=== PATIENT | female | born 1985 | race African-American/Black ===

== ENCOUNTER 2018-01-18 18:44 | Emergency (ER) | payer SELFPAY ==
[2018-01-18] MEDS ORDERED: LORAZEPAM 1 MG TABLET PO ONE (19:32)
--- NOTE | 2018-01-18 19:37 | ER Document Report ---
ED Psych Disorder / Suicide - General Chief Complaint: Anxiety Stated Complaint: ANXIETY Time Seen by Provider: 01/18/18 19:10 Mode of Arrival: Ambulatory Information source: Patient Notes: Patient is a 32-year-old female who presents with a chief complaint of anxiety, patient states that she was in an argument with her roommate and another friend when she started having severe anxiety symptoms. Patient reports that she had one episode of anxiety similar to this a few years ago. Patient denies taking any medications for her anxiety. Patient reports a history of asthma as a child. Patient denies any suicidal or homicidal ideations. Patient does respond report smoking approximately 1 pack per day of cigarettes and drinks occasional alcohol and uses cocaine occasionally. Patient reports that she had 2 shots of alcohol today and did some cocaine about 2 hours prior to arrival. Patient states that she smokes daily, uses alcohol a few times a week and uses cocaine approximately once a month. Patient denies any nausea, vomiting, chest pain or any other physical complaints. TRAVEL OUTSIDE OF THE [place] IN LAST 30 DAYS: No - HPI Onset: This afternoon Onset was: Sudden Quality of pain: No pain Severity: Moderate Pain Level: Denies Similar symptoms previously: Yes - one episode 3 years ago Recently seen / treated by doctor: No - Related Data Allergies/Adverse Reactions: lettuce Allergy (Verified 01/18/18 18:56) shellfish derived Allergy (Verified 01/18/18 18:56) Past Medical History - General Information source: Patient - Social History Smoking Status: Current Every Day Smoker Chew tobacco use (# tins/day): No Frequency of alcohol use: Occasional Drug Abuse: Cocaine Lives with: Friend Family History: Reviewed & Not Pertinent - Denies any family history of psychiatric disorders Patient has suicidal ideation: No Patient has homicidal ideation: No - Past Medical History Cardiac Medical History: Reports: None Pulmonary Medical History: Reports: Hx Asthma EENT Medical History: Reports: None Neurological Medical History: Reports: None Endocrine Medical History: Reports: None Renal/ Medical History: Reports: None. Denies: Hx Peritoneal Dialysis Malignancy Medical History: Reports: None GI Medical History: Reports: None Musculoskeltal Medical History: Reports None Skin Medical History: Reports None Psychiatric Medical History: Reports: Hx Anxiety - Denies taking any medications for her anxiety Traumatic Medical History: Reports: None Infectious Medical History: Reports: None Surgical Hx: Negative Past Surgical History: Reports: None - Immunizations Immunizations up to date: Yes Review of Systems - Review of Systems Constitutional: See HPI. denies: Chills, Fever EENT: No symptoms reported Cardiovascular: No symptoms reported Respiratory: No symptoms reported Gastrointestinal: No symptoms reported. denies: Diarrhea, Nausea, Vomiting Genitourinary: No symptoms reported Female Genitourinary: No symptoms reported Musculoskeletal: No symptoms reported Skin: No symptoms reported Hematologic/Lymphatic: No symptoms reported Neurological/Psychological: Anxiety Physical Exam - Vital signs Vitals: Temp Pulse Resp BP Pulse Ox 99.8 F 135 H 22 H 133/97 H 100 01/18/18 18:53 01/18/18 18:53 01/18/18 18:53 01/18/18 18:53 01/18/18 18:53 Interpretation: Normal - General General appearance: Appears well, Alert - HEENT Head: Normocephalic, Atraumatic Eyes: Normal Pupils: PERRL - Respiratory Respiratory status: No respiratory distress Chest status: Nontender Breath sounds: Normal Chest palpation: Normal - Cardiovascular Rhythm: Regular, Tachycardia Heart sounds: Normal auscultation Murmur: No Pulses: Bounding: Radial Normal capillary refill: Yes - Abdominal Inspection: Normal Distension: No distension Bowel sounds: Normal Tenderness: Nontender Organomegaly: No organomegaly - Back Back: Normal, Nontender - Extremities General upper extremity: Normal inspection, Nontender, Normal color, Normal ROM , Normal temperature General lower extremity: Normal inspection, Nontender, Normal color, Normal ROM , Normal temperature, Normal weight bearing. No: Adam's sign - Neurological Neuro grossly intact: Yes Cognition: Normal Orientation: AAOx4 [place] Coma Scale Eye Opening: Spontaneous [place] Coma Scale Verbal: Oriented [place] Coma Scale Motor: Obeys Commands [place] Coma Scale Total: 15 Speech: Normal Motor strength normal: LUE, RUE, LLE, RLE Sensory: Normal - Psychological Associated symptoms: Normal mood, Anxious. No: Auditory hallucinations, Visual hallucinations - Skin Skin Temperature: Warm Skin Moisture: Dry Skin Color: Normal Course - Re-evaluation Re-evalutation: Patient is very anxious and tearful upon initial evaluation. Patient is denying any suicidal or homicidal thoughts. Patient does report drinking 2 shots of alcohol and using cocaine approximately 2 hours prior to arrival. Will medicate patient's and reassess once her anxiety is reduced. Patient reassessed after Ativan 1 mg p.o. patient has calmed down but still has mild anxiety symptoms. Patient continues to deny any physical complaints. Patient wishes to be sent to [facility] if possible. [facility] attempt to [facility] contact [facility] and arrange for her safe transport and discharge. 01/18/18 22:05 Nursing staff attempted to contact [facility] and other shelters in the area. Patient is not a candidate for placement at the [facility] according to staff. Patient continues to state that she does not have a safe place to go and that she does not feel safe at home. Patient will not elaborate on what her safety concerns are at the home. Patient's vital signs normalized. Tachycardia resolved. Patient is medically clear. Will hold patient in the emergency department awaiting psych consult in the a.m. for additional resources this patient has no safe place to be discharged to at this time. 01/19/18 06:22 Per nursing staff patient has been resting comfortably. [facility]. 01/19/18 07:19 Bedside report / handoff to Idris Pierre NP. - Vital Signs Vital signs: Temp Pulse Resp BP Pulse Ox 98.0 F 84 16 106/71 100 01/19/18 04:55 01/19/18 04:55 01/19/18 04:55 01/19/18 04:55 01/19/18 04:55 Discharge - Discharge Clinical Impression: Anxiety
--- NOTE | 2018-01-18 22:38 | EKG REPORT ---
SEVERITY:- BORDERLINE ECG - SINUS TACHYCARDIA PROBABLE LEFT ATRIAL ABNORMALITY : Confirmed by: Siobhan Jurado 18-Jan-2018 22:37:36
[2018-01-19 08:30] LABS: URINE BARBITURATES SCREEN NEGATIVE; URINE BENZODIAZEPINES SCREEN NEGATIVE; URINE COCAINE SCREEN UNCONFIRMED POSITIVE; URINE MARIJUANA (THC) SCREEN UNCONFIRMED POSITIVE; URINE METHADONE SCREEN NEGATIVE; URINE PHENCYCLIDINE SCREEN NEGATIVE
--- NOTE | 2018-01-19 09:22 | ER Document Report ---
Doctor's Note Notes: 01/19/18 09:21 This is a 32-year-old female who presented last night with anxiety in the setting of homelessness. She was observed overnight and is awaiting counseling. Her vital signs have been stable. She is medically stable for discharge. The patient is resting comfortably and easily aroused, she is in no acute distress. 01/19/18 09:42
--- NOTE | 2018-01-19 12:19 | PSYCHOLOGICAL NOTE ---
Psych Note - Psych Note Psych Note: Reason for consult: Anxiety Contact Permissions: None Patient is a 32-year-old female. Originally when clinician went in in the morning for assessment patient appeared tearful, and paranoid. Patient reported using cocaine, methamphetamine, and marijuana. Patient reports she has been using cocaine for 2 years. Patient reports last night she was using cocaine with her roommate and stated when she got to the house she felt "nervous ". Patient reports in her home she saw a white and blue pocketbook and stated that she felt her roommate was "in on it". Patient reports she was anxious and thought someone was going to kill her. Patient reports she wandered to a hotel and sat in the lobby, and then tried to open the back doors of [facility], and then called 911 to go to the hospital because she was paranoid. Patient reports that she felt homeless because she did not want to go to her roommates house stating her roommate was messing with her phone and thinks she is "hacking" things. However when clinician went to reassess in the afternoon patient appeared brighter affect was not tearful and stated she felt better. Patient was no longer under the influence of cocaine, patient reported she was not feeling anxious anymore and was interested in substance use treatment resources. Patient reported she was going to look over resources and make an appointment for an outpatient provider tomorrow. 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 Patient presented to the emergency room originally on cocaine and was experiencing paranoia. Patient began to sober while resting in the emergency room, and stated she was interested in substance use treatment. Clinician provided community resources, substance use education, and substance use treatment resources. Recommendation for patient to follow-up with [facility] for an assessment tomorrow, patient provided this information. Clinician observed patient's paranoia and anxiety were correlated with patient' s substance use. Attending practitioner in agreement with plan. Consulted with Dr. De La Rosa regarding the management and care of patient.
[2018-01-19 17:15] VITALS: BP 110/68
== END 2018-01-19 17:10 | disposition home or self-care (01) ==
LOC: ER 18:44
DX: F41.9 Anxiety disorder, unspecified (principal); Z72.89 Other problems related to lifestyle; F14.90 Cocaine use, unspecified, uncomplicated; F17.210 Nicotine dependence, cigarettes, uncomplicated; J45.909 Unspecified asthma, uncomplicated
CPT/HCPCS: 80307; 93005; 93010; 99285